=== PATIENT | male | born 1990 | race Caucasian/White ===

== ENCOUNTER 2021-01-02 10:08 | Emergency (ER) | payer MEDICAID, MEDICARE ==
[~2021-01-02] VITALS: Ht 193 cm; Wt 90.9 kg
[2021-01-02 10:25] VITALS: BP 120/79
[2021-01-02] MEDS ORDERED: buprenorphine/naloxone 8MG-2MG SUBlingual film SL SCH (11:35)
[2021-01-02] MEDS ORDERED: buprenorphine/naloxone 8MG-2MG SUBlingual film SL ONE (11:35)
== END 2021-01-02 12:00 | disposition home or self-care (01) ==
LOC: ER 10:10
DX: F11.23 Opioid dependence with withdrawal (principal); Z88.0 Allergy status to penicillin
CPT/HCPCS: 99283

== ENCOUNTER 2021-01-03 09:46 | Emergency (ER) | payer MEDICARE, MEDICAID ==
[~2021-01-03] VITALS: Ht 193 cm; Wt 90.0 kg
[2021-01-03 10:26] VITALS: BP 114/76
[2021-01-03] MEDS ORDERED: buprenorphine/naloxone 8MG-2MG SUBlingual film SL ONE (10:35)
== END 2021-01-03 10:50 | disposition home or self-care (01) ==
LOC: ER 09:47
DX: F11.23 Opioid dependence with withdrawal (principal); Z88.0 Allergy status to penicillin
CPT/HCPCS: 99283

== ENCOUNTER 2021-03-06 13:32 | Emergency (ER) | payer MEDICAID, MEDICARE ==
[~2021-03-06] VITALS: Ht 193 cm; Wt 81.8 kg
[2021-03-06 13:58] VITALS: BP 100/68
[2021-03-06] MEDS ORDERED: QUET-1 PO (14:16)
[2021-03-06] MEDS ORDERED: MIRT30TA3 PO (14:16)
== END 2021-03-06 14:34 | disposition home or self-care (01) ==
LOC: ER 13:32
DX: F32.9 Major depressive disorder, single episode, unspecified (principal); F20.9 Schizophrenia, unspecified; Z76.0 Encounter for issue of repeat prescription; Z88.0 Allergy status to penicillin; Z79.899 Other long term (current) drug therapy
CPT/HCPCS: 99281; 99283

== ENCOUNTER 2021-03-29 16:29 | Emergency (ER) | payer MEDICARE, MEDICAID ==
[~2021-03-29] VITALS: Ht 193 cm; Wt 81.0 kg
[~2021-03-29 16:29] MED LIST: MIRT30TA3 PO; QUET-1 PO
[2021-03-29 17:49] VITALS: BP 131/85
[2021-03-29] MEDS ORDERED: MIRT-88 PO (17:58)
[2021-03-29] MEDS ORDERED: QUET-1 PO (17:58)
== END 2021-03-29 19:33 | disposition home or self-care (01) ==
LOC: ER 16:30
DX: F20.9 Schizophrenia, unspecified (principal); Z76.0 Encounter for issue of repeat prescription; Z88.0 Allergy status to penicillin
CPT/HCPCS: 99281

== ENCOUNTER 2022-04-24 17:16 | Emergency (ER) | payer MEDICAID ==
[~2022-04-24] VITALS: Ht 193 cm; Wt 90.9 kg
[~2022-04-24 17:16] MED LIST changes: +MIRT-88 PO
[2022-04-24 17:27] VITALS: BP 132/99
[2022-04-24] MEDS ORDERED: LORA-269 PO (18:39)
== END 2022-04-24 19:19 | disposition home or self-care (01) ==
LOC: ER 17:17
DX: F41.9 Anxiety disorder, unspecified (principal); R00.0 Tachycardia, unspecified; F20.9 Schizophrenia, unspecified; F31.9 Bipolar disorder, unspecified; Z88.0 Allergy status to penicillin; Z79.899 Other long term (current) drug therapy
CPT/HCPCS: 99283

== ENCOUNTER 2022-05-09 00:38 | Emergency (ER) | payer MEDICARE, MEDICAID ==
[~2022-05-09] VITALS: Ht 193 cm; Wt 90.9 kg
[~2022-05-09 00:38] MED LIST changes: +LORA-269 PO
[2022-05-09 01:06] VITALS: BP 132/92
== END 2022-05-09 04:40 | disposition left against medical advice (07) ==
LOC: ER 00:39
DX: F41.9 Anxiety disorder, unspecified (principal); Z53.21 Procedure and treatment not carried out due to patient leaving prior to being seen by health care provider

== ENCOUNTER 2022-11-11 01:15 | Emergency (ER) | payer BC, MEDICAID ==
[~2022-11-11] VITALS: Ht 193 cm; Wt 84.6 kg
--- NOTE | 2022-11-11 01:41 | NUR ---
Lab not able to get blood, I looked and attempted and not able to as well. 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 Dr Chaparro made aware.
[2022-11-11] MEDS ORDERED: PROP10TA10 PO (02:48)
[2022-11-11] MEDS ORDERED: propranolol 10mg tablet PO ONE (02:50)
[2022-11-11 03:03] VITALS: BP 137/97
== END 2022-11-11 03:06 | disposition home or self-care (01) ==
LOC: ER 01:16
DX: F41.9 Anxiety disorder, unspecified (principal); F32.A Depression, unspecified; F17.200 Nicotine dependence, unspecified, uncomplicated; Z88.0 Allergy status to penicillin; Z79.899 Other long term (current) drug therapy; Z79.1 Long term (current) use of non-steroidal anti-inflammatories (NSAID); Z79.2 Long term (current) use of antibiotics
CPT/HCPCS: 93005; 99283

== ENCOUNTER 2024-01-02 07:17 | Emergency (ER) | payer BC, MEDICAID ==
[~2024-01-02] VITALS: Ht 193 cm; Wt 95.0 kg
[~2024-01-02 07:17] MED LIST changes: +MIRT-140 PO; -MIRT30TA3 PO; +PROP10TA10 PO
[2024-01-02 07:19] VITALS: BP 131/78; PULSE 81; RESP 16; TEMP 97.8; O2SAT 97
[2024-01-02] MEDS ORDERED: ketorolac trometh inj. 60 MG/2 ML VIAL IM ONE (09:35)
[2024-01-02] MEDS ORDERED: CEPH-585 PO (09:36)
[2024-01-02] MEDS: TETanus/Pertussis (Acell)/Diphther VAC/PF (Tdap-Adult) 0.5ml syringe IMVAC ONE (10:11)
[2024-01-02] MEDS: ketorolac tromethamine 15mg/ml inj. IM ONE (10:12)
== END 2024-01-02 10:35 | disposition home or self-care (01) ==
LOC: ER 07:19
DX: S61.031A Puncture wound without foreign body of right thumb without damage to nail, initial encounter (principal); Z88.0 Allergy status to penicillin; W26.8XXA Contact with other sharp object(s), not elsewhere classified, initial encounter; Y93.89 Activity, other specified; Y92.89 Other specified places as the place of occurrence of the external cause; Y99.8 Other external cause status
CPT/HCPCS: 90471; 90715; 99283

== ENCOUNTER 2024-04-23 07:07 | Emergency (ER) | payer BC, OTHER ==
[~2024-04-23] VITALS: Ht 193 cm; Wt 87.2 kg
[2024-04-23 07:12] VITALS: BP 126/75; PULSE 83; RESP 16; O2SAT 97
[2024-04-23] MEDS ORDERED: PRED20TA PO (09:06)
[2024-04-23] MEDS ORDERED: ALBU8HFA INH (09:06)
[2024-04-23 09:13] VITALS: TEMP 97.2
== END 2024-04-23 09:16 | disposition home or self-care (01) ==
LOC: ER 07:07
DX: J06.9 Acute upper respiratory infection, unspecified (principal); F11.23 Opioid dependence with withdrawal; F41.9 Anxiety disorder, unspecified; F32.A Depression, unspecified; Z79.899 Other long term (current) drug therapy; Z88.0 Allergy status to penicillin
CPT/HCPCS: 93005; 99283

== ENCOUNTER 2024-06-01 10:21 | Emergency (ER) | payer OTHER ==
[~2024-06-01] VITALS: Ht 193 cm; Wt 89.9 kg
[2024-06-01] MEDS ORDERED: CLON1TAB2 PO (10:41)
[2024-06-01 10:55] VITALS: BP 138/78; PULSE 125; RESP 16; TEMP 98; O2SAT 94
== END 2024-06-01 10:56 | disposition home or self-care (01) ==
LOC: ER 10:21
DX: Z76.0 Encounter for issue of repeat prescription (principal); F41.9 Anxiety disorder, unspecified; F32.A Depression, unspecified; Z88.0 Allergy status to penicillin; Z79.899 Other long term (current) drug therapy
CPT/HCPCS: 99281

== ENCOUNTER 2024-08-25 21:20 | Emergency (ER) | payer OTHER ==
[~2024-08-25] VITALS: Ht 193 cm; Wt 92.9 kg
[~2024-08-25 21:20] MED LIST changes: +CLON1TAB2 PO
[2024-08-25 21:23] VITALS: BP 113/41; PULSE 78; RESP 18; TEMP 98.1; O2SAT 99
[2024-08-25] MEDS ORDERED: CARI1.5C PO (21:31)
[2024-08-25] MEDS ORDERED: QUET300T91 PO (21:31)
[2024-08-25] MEDS ORDERED: CLON1TAB12 PO (21:31)
== END 2024-08-25 21:50 | disposition home or self-care (01) ==
LOC: ER 21:21
DX: J02.9 Acute pharyngitis, unspecified (principal); F41.9 Anxiety disorder, unspecified; F32.A Depression, unspecified; Z79.899 Other long term (current) drug therapy; Z88.0 Allergy status to penicillin
CPT/HCPCS: 93005; 99283

== ENCOUNTER 2024-09-09 03:58 | Emergency (ER) | payer OTHER ==
[~2024-09-09] VITALS: Ht 193 cm; Wt 90.9 kg
[~2024-09-09 03:58] MED LIST changes: +CARI1.5C PO; +CLON1TAB12 PO; -CLON1TAB2 PO; -LORA-269 PO; -MIRT-140 PO; -MIRT-88 PO; -PROP10TA10 PO; -QUET-1 PO; +QUET300T91 PO
[2024-09-09 04:57] VITALS: BP 130/74; PULSE 86; RESP 18; TEMP 98.6; O2SAT 99
== END 2024-09-09 04:58 | disposition home or self-care (01) ==
LOC: ER 03:59
DX: Z13.9 Encounter for screening, unspecified (principal); F41.9 Anxiety disorder, unspecified; F32.A Depression, unspecified; Z88.0 Allergy status to penicillin; Z79.899 Other long term (current) drug therapy
CPT/HCPCS: 93005; 99283

== ENCOUNTER 2024-09-18 22:59 | Emergency (ER) | payer OTHER ==
[~2024-09-18] VITALS: Ht 193 cm; Wt 65.1 kg
[2024-09-18 23:08] VITALS: BP 131/88; PULSE 93; RESP 15; O2SAT 99
[2024-09-18 23:52] VITALS: TEMP 98.6
[2024-09-18] MEDS: clonazePAM 1mg tablet PO STA (23:57)
== END 2024-09-18 23:58 | disposition home or self-care (01) ==
LOC: ER 22:59
DX: F41.9 Anxiety disorder, unspecified (principal); F32.A Depression, unspecified; Z88.0 Allergy status to penicillin; Z79.899 Other long term (current) drug therapy
CPT/HCPCS: 99283

== ENCOUNTER 2025-04-16 18:52 | Emergency (ER) | payer OTHER ==
[2025-04-17] MEDS ORDERED: CLON-567 PO ×2 (10:20)
[2025-04-17] MEDS ORDERED: BUSP10TA11 PO (10:26)
[2025-04-17] MEDS ORDERED: QUET300T91 PO (10:26)
== END 2025-04-16 20:10 | disposition left against medical advice (07) ==
LOC: ER 18:52
DX: Z00.8 Encounter for other general examination (principal); Z88.0 Allergy status to penicillin; Z53.21 Procedure and treatment not carried out due to patient leaving prior to being seen by health care provider

== ENCOUNTER 2025-04-17 09:58 | Emergency (ER) | payer OTHER ==
[~2025-04-17] VITALS: Ht 182.9 cm; Wt 80.5 kg
[2025-04-17 10:13] VITALS: BP 124/76; PULSE 80; RESP 18; TEMP 97.7; O2SAT 98
--- NOTE | 2025-04-17 10:14 | Physician Documentation ---
HPI ~ General Stated Complaint: MED REQUEST Time Seen by MD: 10:14 Primary Medical Doctor: None History of Present Illness HPI Comments This is a patient who is currently on Klonopin 0.5 mg p.o. t.i.d., Seroquel 300 mg daily at bedtime, and buspirone 10 mg p.o. b.i.d.. He reports that he is completely out of his medications. Does not have another appointment with his psychiatrist until the 9 of this month. Denies any other concerns. Denies suicidal ideation. Medication Reconciliation Allergies: Coded Allergies: Penicillins (Verified Allergy, Unknown, 04/17/25) RASH, DIFFICULTY BREATHING Scheduled Buspirone Hcl* (Buspar*), 1 TAB PO Q12H Cariprazine Hydrochloride (Vraylar), 1 CAP PO DAILY, (Reported) Quetiapine Fumarate (Quetiapine Fumarate ER), 1 TAB PO HS Scheduled PRN Clonazepam (Clonazepam), 1 TAB PO HS PRN for anxiety, (Reported) Clonazepam (Clonazepam), 1 TAB PO TID PRN for for anxiety/agitation Past Medical History Past Medical History: *PSYCH*, Anxiety, Bipolar, Depression Past Surgical History: noncontributory Alcohol Use: None Drug Use: none Lives In: Home Review of Systems ROS As stated above in the HPI, otherwise all systems are reviewed and negative. Physical Exam Physical Exam Physical Exam General: Alert, no apparent distress. Neck: Full range of motion. Respiratory: Lungs clear, no respiratory distress. Chest: No accessory muscle use. Cardiovascular: Regular rate and rhythm, no murmurs. Gastrointestinal: Soft, nontender, nondistended. Bowels sounds present. Extremities: Normal range of motion, no deformity. Neurologic: Oriented x4. Psychiatric: Normal mood and affect. Skin: Normal color, warm and dry. No edema, no ecchymosis. Progress Results/Orders Results/Orders Vital Signs 04/17/25 10:13 Temp 97.7 Pulse 80 Resp 18 B/P (MAP) 124/76 Pulse Ox 98 O2 Flow Rate 0 Medical Decision Making Differential Dx:Considerations: Include: Adverse circumstances, Economic, Psychosocial, Medical services unavail., Medication refill, Medication non- compliance Departure Time of Disposition: 10:21 Disposition: 01 HOME / SELF CARE / HOMELESS Impression: Primary Impression: Anxiety Additional Impression: Medication refill Discharge Instructions: Generalized Anxiety Disorder, Adult Additional Instructions: Seven day refill of clonazepam 0.5 mg three times daily as needed provided. Please see your primary care provider for further refills or return to the ER for any emergent concerns. Referrals: NO PRIMARY CARE PROVIDER (PCP) Prescriptions Buspirone Hcl* (Buspar*) 10 Mg Tablet 1 TAB PO Q12H for 7 Days, #14 TAB Prov: JOCELYNE NATHAN NP 04/17/25 Quetiapine Fumarate (Quetiapine Fumarate ER) 300 Mg Tab.er.24h 1 TAB PO HS for 7 Days, #7 TAB.SR Prov: JOCELYNE NATHAN NP 04/17/25 Clonazepam (Clonazepam) 0.5 Mg Tablet 1 TAB PO TID PRN for for anxiety/agitation for 7 Days, #20 TABLET Prov: JOCELYNE NATHAN NP 04/17/25 Education Educated: Patient, Family Educated regarding: diagnosis, treatment, prognosis, need for follow up Signature Scribe Signature: x Attestation: The note accurately reflects work and decisions made by me.Jocelyne Louis NP 04/17/25 10:35 JOCELYNE NATHAN NP Apr 17, 2025 10:14
[2025-04-17] MEDS ORDERED: CLON-567 PO ×2 (10:20)
[2025-04-17] MEDS ORDERED: BUSP10TA11 PO (10:26)
[2025-04-17] MEDS ORDERED: QUET300T91 PO (10:26)
== END 2025-04-17 11:46 | disposition home or self-care (01) ==
LOC: ER 09:58
DX: F41.9 Anxiety disorder, unspecified (principal); F31.9 Bipolar disorder, unspecified; Z76.0 Encounter for issue of repeat prescription; Z88.0 Allergy status to penicillin; Z79.899 Other long term (current) drug therapy
CPT/HCPCS: 99281